=== PATIENT | female | born 1965 | race Caucasian/White ===

== ENCOUNTER 2016-05-11 18:42 | Inpatient (IN) | payer BC ==
[2016-05-11] MEDS ORDERED: Ondansetron INJ* 2 MG/ML VIAL IV ONE (18:56)
[2016-05-11] MEDS ORDERED: fentaNYL* 50 MCG/ML 2 ML VIAL (100 MCG VIAL) IV SLOW PU ONE (19:42)
--- NOTE | 2016-05-11 19:42 | RAD ---
indication: Fall while ice skating COMPARISON: None A CT scan of the brain and c-spine was performed without intravenous contrast enhancement. Contiguous axial sections were obtained from the lung apices through the vertex. BRAIN: At the right frontal lobe cortex there is a focal 7 mm hyperattenuating focus (image 11). External to this there is the appearance of a small amount of heterogeneous fluid not seen on the contralateral side. Along the lateral aspect of the left occiput there is a lenticular shaped hyperattenuating focus measuring 1.1 cm in length (image 14). This latter finding appears to correspond to a focus of subgaleal hematoma and induration overlying the left occipital bone. There is partial hyperdense effusion in the left mastoid air cells (image 6 of 32). No skull fracture line can be identified. The visualized paranasal sinuses are clear. C-SPINE: On the sagittal view images there is nonspecific straightening of the normal cervical lordosis. The vertebral bodies and facet joints are appropriately aligned. There is no widening of the atlantodental interval. Degenerative changes include loss of intervertebral disc height most severely affecting C5/C6. There is no hyperdense material in the cervical canal to indicate hemorrhage. The visualized musculature and soft tissues are normal. There is no gross lymphadenopathy visualized. The visualized portion of the lung apices are clear. IMPRESSION: 1. CT findings are compatible with an epidural versus subdural bleed overlying the left occipital lobe with a contrecoup contusion at the right frontal lobe as well as potential extra-axial hemorrhage external to the right frontal lobe. In addition there is hyperdense fluid in the dependent left mastoid air cells which can be a secondary finding of a temporal bone fracture, however no fracture line is identified on this CT examination. 2. Degenerative changes of the cervical spine with nonspecific straightening of the normal cervical lordosis without identification of acute fracture or traumatic dislocation. Findings were discussed with Dr. Wilson over the telephone at 1930 hours on May 11, 2016.
[2016-05-11] MEDS ORDERED: levETIRAcetam IV* 500 MG in NS 0.9% 100 ML* 100 ML IVPB ONE (19:43)
[2016-05-11] MEDS ORDERED: Piperac/Tazob 3.375 gm in NS* 3.375 GM/100 ML BAG IVPB ONE (19:43)
[2016-05-11 20:12] LABS: Hematocrit 37 % (35-47); Mean Corpuscular HGB Conc 33 g/dl (31-36); Mean Corpuscular Hemoglobin 30 pg (27-31); Mean Corpuscular Volume 90 fL (80-97); Mean Platelet Volume 8 um3 (7.4-10.4); Red Blood Count 4.08 10^6/ul (4.0-5.4); Red Cell Distribution Width 13 % (10.5-15); White Blood Count 19.3 10^3/ul (3.5-10.8)
[2016-05-11 20:27] LABS: ALT 11 U/L (7-52); AST 14 U/L (13-39); Albumin 3.7 g/dL (3.2-5.2); Alkaline Phosphatase 44 U/L (34-104); Anion Gap 4 mmol/L (2-11); BUN/Creatinine Ratio 35.1 (8-20); Blood Urea Nitrogen 20 mg/dL (6-24); CO2 Carbon Dioxide 25 mmol/L (22-32); Calcium 7.9 mg/dL (8.6-10.3); Chloride 107 mmol/L (101-111); EGFR African American 144.4 (>60); EGFR Non-African American 112.3 (>60); Globulin 2.7 g/dL (2-4); Glucose 98 mg/dL (70-100); Potassium 3.6 mmol/L (3.5-5.0); Sodium 136 mmol/L (133-145); Total Protein 6.4 g/dL (6.4-8.9)
--- NOTE | 2016-05-11 20:51 | ED ---
Head Injury - HPI Summary HPI Summary: Patient is a 51 year-old female coming to [facility] presenting with a head injury after she slipped and fell on the ice while skating this evening. She fell backwards onto the left occiput. The fall was unwitnessed by her , who is here in the room with her, but he was notified immediately and he skated over from the other side of the rink to see her. He reports positive LOC but states that she was already conscious when he arrived, so he estimates a loss of consciousness less than one minute. She does not remember hitting the ice. In the ED, she reports nausea, posterior headache, and left ear pain. She denies any numbness, tingling, blurred vision, or neck pain. She has no significant PMHx. - History Of Current Complaint Chief Complaint: EDHeadInjury Stated Complaint: FALL/HEAD INJURY Time Seen by Provider: 05/11/16 18:47 Hx Obtained From: Patient Mechanism Of Injury: Blunt Trauma, Fall From A Standing Position Onset/Duration: Started Hours Ago Onset of Pain: Immediate Severity Currently: Severe Pain Intensity: 9 Pain Scale Used: 0-10 Numeric Location of Head Injury: Diffuse Character: Sharp Associated Signs And Symptoms: LOC (Time In Secs./Mins/Hrs) - Risk Factors SDH Risk Factor: Negative - Allergies/Home Medications Allergies/Adverse Reactions: Allergies Allergy/AdvReac Type Severity Reaction Status Date / Time No Known Allergies Allergy Verified 05/11/16 19:25 PMH/Surg Hx/FS Hx/Imm Hx Endocrine/Hematology History: Denies: Hx Diabetes Cardiovascular History: Denies: Hx Congestive Heart Failure, Hx Hypertension - Cancer History Hx Chemotherapy: No Hx Radiation Therapy: No - Surgical History Surgery Procedure, Year, and Place: tubal ligation - Immunization History Date of Tetanus Vaccine: unk Date of Influenza Vaccine: unk Infectious Disease History: No Infectious Disease History: Denies: Traveled Outside the [place] in Last 30 Days - Social History Alcohol Use: Daily Alcohol Amount: 1 DRINK Substance Use Type: Reports: None Smoking Status (MU): Never Smoked Tobacco Review of Systems Constitutional: Negative Eyes: Negative ENT: Other - Left EAC bleeding no CSF leak Cardiovascular: Negative Respiratory: Negative Gastrointestinal: Negative Positive: Headache All Other Systems Reviewed And Are Negative: No Physical Exam - Summary Physical Exam Summary: General: Comfortable, pleasant, alert. HEENT: Moist mucosa. No facial abrasion or bony tenderness. Bleeding from the left pinna. Left TM slightly visualized with some blood within the left ear canal. Parietal occipital region is tender, with no obvious large hematoma or stepoff. Negative Winslow's Sign, negative raccoon's sign, negative CSF rhinorrhea. Neck: Soft, supple, no adenopathy, no edema. No c-spine tenderness. Full ROM of c-spine. No pain with active ROM. Heart: S1, S2, RRR. Negative murmur/rub/gallops Lungs: Clear, breathing comfortably, negative wheezes/rales. Abd: Soft, flat, nontender. Extremities: No edema, no calf tenderness. Strength intact of the upper extremities. Lower extremities also full ROM with no signs of injury or trauma. Neuro: A&Ox3. CN III-XII intact. Psych: Logical, coherent. Vital Signs On Initial Exam: Temp Pulse Resp BP Pulse Ox 99.3 F 93 14 126/60 98 05/11/16 19:20 05/11/16 19:20 05/11/16 19:20 05/11/16 19:20 05/11/16 19:20 Vital Signs Reviewed: Yes Appearance: Positive: Well-Appearing Skin: Positive: Warm Eyes: Positive: Normal ENT: Positive: Other - left EAC bleeding no CSF leak Neck: Positive: Nontender Respiratory/Lung Sounds: Positive: Clear to Auscultation Cardiovascular: Positive: Normal Abdomen Description: Positive: Nontender Neurological: Positive: Normal, Sensory/Motor Intact, Alert, Oriented to Person Place, Time, CN Intact II-III, Reflexes Intact, Facial Symmetry, Speech Normal - [place] Coma Scale Best Eye Response: 4 - Spontaneous Best Motor Response: 6 - Obeys Commands Best Verbal Response: 5 - Oriented Coma Scale Total: 15 Diagnostics - Vital Signs Vital Signs Temp Pulse Resp BP Pulse Ox 05/11/16 19:20 99.3 F 93 14 126/60 98 - Laboratory Lab Results: Lab Results 05/11/16 05/11/16 05/11/16 Range/Units 20:05 20:05 20:05 WBC 19.3 H (3.5-10.8) 10^3/ul RBC 4.08 (4.0-5.4) 10^6/ul Hgb 12.0 (12.0-16.0) g/dl Hct 37 (35-47) % MCV 90 (80-97) fL MCH 30 (27-31) pg MCHC 33 (31-36) g/dl RDW 13 (10.5-15) % Plt Count 364 (150-450) 10^3/ul MPV 8 (7.4-10.4) um3 Neut % (Auto) 86.5 H (38-83) % Lymph % (Auto) 8.3 L (25-47) % [place] % (Auto) 4.2 (1-9) % Eos % (Auto) 0.6 (0-6) % Baso % (Auto) 0.4 (0-2) % Absolute Neuts (auto) 16.7 H (1.5-7.7) 10^3/ul Absolute Lymphs (auto) 1.6 (1.0-4.8) 10^3/ul Absolute Monos (auto) 0.8 (0-0.8) 10^3/ul Absolute Eos (auto) 0.1 (0-0.6) 10^3/ul Absolute Basos (auto) 0.1 (0-0.2) 10^3/ul Absolute Nucleated RBC 0 10^3/ul Nucleated RBC % 0 INR (Anticoag Therapy) 0.94 (0.89-1.11) Sodium 136 (133-145) mmol/L Potassium 3.6 (3.5-5.0) mmol/L Chloride 107 (101-111) mmol/L Carbon Dioxide 25 (22-32) mmol/L Anion Gap 4 (2-11) mmol/L BUN 20 (6-24) mg/dL Creatinine 0.57 (0.51-0.95) mg/dL Est GFR ( Amer) 144.4 (>60) Est GFR (Non-Af Amer) 112.3 (>60) BUN/Creatinine Ratio 35.1 H (8-20) Glucose 98 (70-100) mg/dL Calcium 7.9 L (8.6-10.3) mg/dL Total Bilirubin 0.30 (0.2-1.0) mg/dL AST 14 (13-39) U/L ALT 11 (7-52) U/L Alkaline Phosphatase 44 (34-104) U/L Total Protein 6.4 (6.4-8.9) g/dL Albumin 3.7 (3.2-5.2) g/dL Globulin 2.7 (2-4) g/dL Albumin/Globulin Ratio 1.4 (1-3) Result Diagrams: 05/12/16 05:47 05/13/16 05:27 Lab Statement: Any lab studies that have been ordered have been reviewed, and results considered in the medical decision making process. - CT brain CT Interpretation Completed By: Radiologist - CT findings are compatible with an epidural versus subdural bleed overlying the left occipital lobe with a contrecoup contusion at the right frontal lobe as well as potential extra-axial hemorrhage external to the right frontal lobe. In addition there is hyperdense fluid in the dependent left mastoid air cells which can be a secondary finding of a temporal bone fracture, however no fracture line is identified on this CT examination. c-spine CT Interpretation Completed By: Radiologist - Degenerative changes of the cervical spine with nonspecific straightening of the normal cervical lordosis without identification of acute fracture or traumatic dislocation. - Additional Comments Diagnostic Additional Comments: Ct head showed small right frontal SAH and SDH, air in left mastoid area from skull base fracture, no mass effect or midline shift Re-Evaluation - Re-Evaluation First Eval Re-Evaluation Time: 19:50 Comment: Discussed radiology findings and specialist consultation with the patient. No evidence of CSF leak. Head Injury Course/Dx Assessment/Plan: ENT consult. Repeat CT head tomorrow,. Control SBP less than 140 mmhg. Neurocheck q2h for 12 h then q4h. keppra 750 mmhg bid po for 7 days. advance care tomorrow after stable CT - Diagnoses Differential Diagnosis/HQI/PQRI: Cerebral Contusion, Concussion With LOC, Contusion, Hematoma - small right frontal SAH and SDH, Skull Fracture - left mastoid skull base fracture Provider Diagnoses: SAH (subarachnoid hemorrhage), Basilar skull fracture, Subdural hematoma During the Visit The Following Alert/Code Occurred: Trauma - Physician Notifications Instructed by Provider To: Admit As Inpatient - ENT consult Repeat CT head tomorrow, Control SBP less than 140 mmhg Neurocheck q2h for 12 h then q4h keppra 750 mmhg bid po for 7 days advance care tomorrow after stable CT Discharge - Discharge Plan Condition: Stable Disposition: ADMITTED TO [facility]
--- NOTE | 2016-05-11 21:49 | ED ---
Sly Sanon Billy, scribed for Steve Meredith MD on 05/11/16 at 1929 . Head Injury - HPI Summary HPI Summary: Patient is a 51 year-old female coming to [facility] presenting with a head injury after she slipped and fell on the ice while skating this evening. She fell backwards onto the left occiput. The fall was unwitnessed by her , who is here in the room with her, but he was notified immediately and he skated over from the other side of the rink to see her. He reports positive LOC but states that she was already conscious when he arrived, so he estimates a loss of consciousness less than one minute. She does not remember hitting the ice. In the ED, she reports nausea, posterior headache, and left ear pain. She denies any numbness, tingling, blurred vision, or neck pain. She has no significant PMHx. - History Of Current Complaint Chief Complaint: EDHeadInjury Stated Complaint: FALL/HEAD INJURY Time Seen by Provider: 05/11/16 18:47 Hx Obtained From: Patient Mechanism Of Injury: Fall From A Standing Position Onset/Duration: Started Hours Ago, Still Present Onset of Pain: Immediate Severity Currently: Moderate Severity Initially: Moderate Location of Head Injury: Parietal, Occipital Associated Signs And Symptoms: LOC (Time In Secs./Mins/Hrs) - <1 minute, Nausea , Headache - Allergies/Home Medications Allergies/Adverse Reactions: Allergies Allergy/AdvReac Type Severity Reaction Status Date / Time No Known Allergies Allergy Verified 05/11/16 19:25 PMH/Surg Hx/FS Hx/Imm Hx Endocrine/Hematology History: Denies: Hx Diabetes Cardiovascular History: Denies: Hx Congestive Heart Failure, Hx Hypertension - Cancer History Hx Chemotherapy: No Hx Radiation Therapy: No - Surgical History Surgery Procedure, Year, and Place: tubal ligation Infectious Disease History: Denies: Traveled Outside the [place] in Last 30 Days - Family History Known Family History: Negative: Cardiac Disease, Hypertension, Diabetes - Social History Alcohol Use: Daily Alcohol Amount: 1 DRINK Substance Use Type: Reports: None Smoking Status (MU): Never Smoked Tobacco Review of Systems Negative: Blurred Vision Positive: Nausea Positive: Other - head lac Positive: Headache. Negative: Weakness, Paresthesia, Numbness All Other Systems Reviewed And Are Negative: Yes Physical Exam - Summary Physical Exam Summary: General: Comfortable, pleasant, alert. HEENT: Moist mucosa. No facial abrasion or bony tenderness. Bleeding from the left pinna. Left TM slightly visualized with some blood within the left ear canal. Parietal occipital region is tender, with no obvious large hematoma or stepoff. Negative Winslow's Sign, negative raccoon's sign, negative CSF rhinorrhea. Neck: Soft, supple, no adenopathy, no edema. No c-spine tenderness. Full ROM of c-spine. No pain with active ROM. Heart: S1, S2, RRR. Negative murmur/rub/gallops Lungs: Clear, breathing comfortably, negative wheezes/rales. Abd: Soft, flat, nontender. Extremities: No edema, no calf tenderness. Strength intact of the upper extremities. Lower extremities also full ROM with no signs of injury or trauma. Neuro: A&Ox3. CN III-XII intact. Psych: Logical, coherent. Triage Information Reviewed: Yes Vital Signs On Initial Exam: Temp Pulse Resp BP Pulse Ox 99.3 F 93 14 126/60 98 05/11/16 19:20 05/11/16 19:20 05/11/16 19:20 05/11/16 19:20 05/11/16 19:20 Vital Signs Reviewed: Yes Diagnostics - Vital Signs Vital Signs Temp Pulse Resp BP Pulse Ox 05/11/16 20:47 16 05/11/16 19:20 99.3 F 93 14 126/60 98 - Laboratory Lab Results: Lab Results 05/11/16 05/11/16 05/11/16 Range/Units 20:05 20:05 20:05 WBC 19.3 H (3.5-10.8) 10^3/ul RBC 4.08 (4.0-5.4) 10^6/ul Hgb 12.0 (12.0-16.0) g/dl Hct 37 (35-47) % MCV 90 (80-97) fL MCH 30 (27-31) pg MCHC 33 (31-36) g/dl RDW 13 (10.5-15) % Plt Count 364 (150-450) 10^3/ul MPV 8 (7.4-10.4) um3 Neut % (Auto) 86.5 H (38-83) % Lymph % (Auto) 8.3 L (25-47) % [place] % (Auto) 4.2 (1-9) % Eos % (Auto) 0.6 (0-6) % Baso % (Auto) 0.4 (0-2) % Absolute Neuts (auto) 16.7 H (1.5-7.7) 10^3/ul Absolute Lymphs (auto) 1.6 (1.0-4.8) 10^3/ul Absolute Monos (auto) 0.8 (0-0.8) 10^3/ul Absolute Eos (auto) 0.1 (0-0.6) 10^3/ul Absolute Basos (auto) 0.1 (0-0.2) 10^3/ul Absolute Nucleated RBC 0 10^3/ul Nucleated RBC % 0 INR (Anticoag Therapy) 0.94 (0.89-1.11) Sodium 136 (133-145) mmol/L Potassium 3.6 (3.5-5.0) mmol/L Chloride 107 (101-111) mmol/L Carbon Dioxide 25 (22-32) mmol/L Anion Gap 4 (2-11) mmol/L BUN 20 (6-24) mg/dL Creatinine 0.57 (0.51-0.95) mg/dL Est GFR ( Amer) 144.4 (>60) Est GFR (Non-Af Amer) 112.3 (>60) BUN/Creatinine Ratio 35.1 H (8-20) Glucose 98 (70-100) mg/dL Calcium 7.9 L (8.6-10.3) mg/dL Total Bilirubin 0.30 (0.2-1.0) mg/dL AST 14 (13-39) U/L ALT 11 (7-52) U/L Alkaline Phosphatase 44 (34-104) U/L Total Protein 6.4 (6.4-8.9) g/dL Albumin 3.7 (3.2-5.2) g/dL Globulin 2.7 (2-4) g/dL Albumin/Globulin Ratio 1.4 (1-3) Result Diagrams: 05/11/16 20:05 05/11/16 20:05 Lab Statement: Any lab studies that have been ordered have been reviewed, and results considered in the medical decision making process. - CT brain CT Interpretation Completed By: Radiologist - CT findings are compatible with an epidural versus subdural bleed overlying the left occipital lobe with a contrecoup contusion at the right frontal lobe as well as potential extra-axial hemorrhage external to the right frontal lobe. In addition there is hyperdense fluid in the dependent left mastoid air cells which can be a secondary finding of a temporal bone fracture, however no fracture line is identified on this CT examination. c-spine CT Interpretation Completed By: Radiologist - Degenerative changes of the cervical spine with nonspecific straightening of the normal cervical lordosis without identification of acute fracture or traumatic dislocation. Re-Evaluation - Re-Evaluation First Eval Re-Evaluation Time: 19:50 Comment: Discussed radiology findings and specialist consultation with the patient. No evidence of CSF leak. Head Injury Course/Dx Assessment/Plan: Unfortunately, she had a significant fall on the ice and has several small intracranial bleeds intracranial, without neurologic deficits nor evidence of brain edema. She also has what is likely a left temporal bone fracture. At this point, her biggest complaint is pain and discomfort. I have spoken in detail with Dr. Cade and Dr. Cardona. Dr. Cade does not believe the patient needs to be transferred, and he simply would like prophylactic anti-seizure medicines and repeat imaging. Dr. Cade is in the ER as we speak, consulting, and Dr. Thurston accepts the patient for admission. Dr. Cardona will consult in the morning. At the moment, after re-evaluation, there is no evidence of CSF leak as there is no clear fluid coming from the ears or nose. - Diagnoses Differential Diagnosis/HQI/PQRI: Cerebral Contusion, Cervical Sprain, Concussion With LOC, Concussion Without LOC, Hematoma, Intracranial Bleed, Laceration, Skull Fracture, Zygomatic Fracture Provider Diagnoses: SAH (subarachnoid hemorrhage), Basilar skull fracture, Subdural hematoma - Physician Notifications Discussed Care Of Patient With: Dr. Love (radiologist) @ 1928: CT findings discussed. Dr. Cade (neurosurgeon) @ 1933: agrees to see the patient in the ED. Believes the patient will be safe for admission, observation overnight, ENT consult for CSF leak, and repeat CT imaging in the morning. At this rate, he sees no further intervention as far as he can tell, but he recommends Kepra. Dr. Cardona (ENT) @ 1943: will consult in the morning. Recommends antibiotic coverage for what may be an open fracture. As long as there is no clear fluid leaking currently, there is no further intervention tonight. Dr. Thurston ( hospitalist) @ 1959: accepts admission. - Critical Care Time Critical Care Time: 75-104 min - basilar skull fracture, epidural hemorrhage, contracoupe injuries, suggestion of some subarachnoid hemorrhage Discharge - Discharge Plan Condition: Stable Disposition: ADMITTED TO [facility] The documentation as recorded by the Sly pagan Billy accurately reflects the service I personally performed and the decisions made by me, Steve Meredith MD.
[2016-05-11] MEDS: NS 0.9% 1000 ML* 1,000 ML IV SCH (23:02)
[2016-05-11] MEDS: Ondansetron INJ* 2 MG/ML VIAL IV PRN (23:02)
[2016-05-11] MEDS: fentaNYL* 50 MCG/ML 2 ML VIAL (100 MCG VIAL) IV SLOW PU PRN (23:03)
[2016-05-12] MEDS: fentaNYL* 50 MCG/ML 2 ML VIAL (100 MCG VIAL) IV SLOW PU PRN ×9 (01:34→22:25)
[2016-05-12] MEDS ORDERED: Ampicillin IV* 2 GM in NS 0.9% 100 ML* 100 ML IVPB SCH (03:00)
[2016-05-12] MEDS: Ondansetron INJ* 2 MG/ML VIAL IV PRN ×5 (03:53→22:26)
[2016-05-12] MEDS: Ampicillin IV* 2 GM in NS 0.9% 100 ML* 100 ML IVPB SCH ×4 (04:05→22:00)
[2016-05-12 05:54] LABS: Hematocrit 35 % (35-47); Hemoglobin 11.5 g/dl (12.0-16.0); Mean Corpuscular HGB Conc 33 g/dl (31-36); Mean Corpuscular Hemoglobin 30 pg (27-31); Mean Corpuscular Volume 89 fL (80-97); Mean Platelet Volume 8 um3 (7.4-10.4); Red Blood Count 3.86 10^6/ul (4.0-5.4); Red Cell Distribution Width 13 % (10.5-15); White Blood Count 9.4 10^3/ul (3.5-10.8)
[2016-05-12] MEDS: NS 0.9% 1000 ML* 1,000 ML IV SCH ×2 (06:35→15:15)
--- NOTE | 2016-05-12 06:49 | HP ---
HISTORY AND PHYSICAL: DATE OF ADMISSION: 05/11/16 TIME OF EVALUATION: 2100 PRIMARY CARE PHYSICIAN: Dr. Oumar Weldon. CHIEF COMPLAINT: Fall and head injury. HISTORY OF PRESENT ILLNESS: This is a 51-year-old female with an unremarkable past medical history when this evening around 6:30 she was ice skating with her family. She stopped to take a picture and she turned to look behind her and she fell backward a feet though from underneath her and she landed on the back of her head. She did lose consciousness briefly when she came with her, she was confused and with significant amount of head pain and noticed bleeding coming from her left ear. She was seen in the emergency room. She was brought to the emergency room, had a head CT and a cervical spine CT. She was found to have epidural or subdural bleed with a possible temporal bone fracture. Dr. Khan from Neurosurgery evaluated the patient in the emergency room, recommended observation overnight and Dr. Cardona from ENT was also notified due to the bleeding from the ear canal and he also recommended observation overnight with the antibiotics and he would see her in the morning. On my encounter, the patient has a lot of posterior head pain, nausea, no vomiting. She does have some confusion. She denies any numbness or tingling. She denies any blurry vision. She is alert and oriented x2. Otherwise, remaining review of systems is negative. In the emergency room, the patient was given fentanyl 15 mcg, Keppra 500 mg, Zofran 4 mg, and Zosyn and was referred to the hospitalist service for further evaluation. PAST MEDICAL HISTORY: Unremarkable. MEDICATIONS: None. ALLERGIES: No known drug allergies. FAMILY HISTORY: Reviewed and noncontributory. SOCIAL HISTORY: She lives at home with her and her daughter Yesica. She drinks 1 glass of wine per day. No tobacco or illicit drug use history. 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 Her healthcare proxy is her , Rusty. CODE STATUS: Full code. REVIEW OF SYSTEMS: As mentioned in the HPI. PHYSICAL EXAMINATION GENERAL: In no acute distress, resting with her sister and her daughter at the bedside. VITAL SIGNS: Temp 99.3, pulse rate 93, respiratory rate 14, oxygen saturation 98 % on room air, blood pressure 126/60. HEENT: Ear: Her left ear, she does have dark blood, there is a slow ooze from the canal. No clear fluid identified. No posterior auricular hematoma noted. The right ear is normal. Pupils are equal and reactive, anicteric. Head: Normocephalic. Oropharynx: Mucous membranes moist. NECK: Supple. No adenopathy. RESPIRATORY: Clear to auscultation. No wheezes, rhonchi or rales. CARDIAC: Regular rate and rhythm. No murmurs, rubs or gallops. ABDOMEN: Soft, nontender, nondistended. EXTREMITIES: No clubbing, cyanosis or edema. +1 DPs. NEUROLOGIC: She is alert and oriented x2, oriented to self and place. No focal neurologic deficits on exam. DIAGNOSTIC STUDIES/LABORATORY DATA: White count 19.3, hemoglobin 12, hematocrit 37, platelets 364, INR 0.94. Sodium 136, potassium 3.6, chloride 107 , bicarb 25, BUN 20, creatinine 0.57, glucose 98. Radiographic data: Head CT shows CT findings that are compatible with an epidural versus subdural bleed overlying the left occipital lobe with a contrecoup contusion at the right frontal lobe as well as potential external to the right frontal lobe. In addition, there is hyperdense fluid in the dependent left mastoid air cells, which can be secondary finding of a temporal bone fracture. However, no fracture line is identified on this CAT scan. Degenerative changes of the cervical spine with nonspecific straightening of the normal cervical lordosis without indication of acute fracture or traumatic dislocation. ASSESSMENT AND PLAN: This is a 51-year-old female with an unremarkable past medical history who presents to the emergency room after falling on the ice and hitting her head with loss of consciousness and found to have an intracranial bleed with a potential temporal bone fracture. 1. Intracranial hemorrhage secondary to a fall. Assessment: The patient neurologically stable. She was seen by neurosurgeon, Dr. Khan who recommended observation overnight with neuro checks, a repeat CAT scan in the morning, he recommended Keppra 750 mg b.i.d. for [address] Yap from ENT recommended antibiotic coverage and he was going to see her in the morning. Right now, there are no signs of clear fluid. We will observe for this and contact Neurosurgery if this is seen. Plan: As mentioned, admit to the ICU, continue her on the Keppra. We will switch her to ampicillin. Goal is to keep her blood pressure less than 140 systolic, neuro checks q.2 hours and pain control, antiemetics, and repeat CAT scan in the morning. We will repeat a CBC as well in the morning and follow up with Neurosurgery and ENT. 2. FEN. We will allow for clear sips, otherwise keep her NPO. 3. DVT prophylaxis. She is low risk. We will place her on SCDs. 4. Code status. Full code. PATIENT TIME: Greater than 45 minutes were spent doing history and physical, more than half the time spent in direct patient contact. CC: Dr. Oumar Weldon.* [id number]/CPS #: [id number]
--- NOTE | 2016-05-12 08:23 | PN ---
Subjective Date of Service: 05/12/16 Interval History: C/O headache, slept poorly. No new c/o. No visual changes, no limb weakness. Objective Active Medications: Fentanyl Citrate (Fentanyl*) 25 mcg IV SLOW PU Q2HR PRN PRN Reason: PAIN Last Admin: 05/12/16 07:34 Dose: 25 mcg Sodium Chloride (Ns 0.9% 1000 Ml*) 1,000 mls @ 125 mls/hr IV PER RATE [place] Last Admin: 05/12/16 06:35 Dose: 125 mls/hr Levetiracetam 750 mg/ Sodium (Chloride) 107.5 mls @ 460 mls/hr IVPB Q12H [facility] Ampicillin Sodium 2 gm/ Sodium (Chloride) 100 mls @ 200 mls/hr IVPB 0400,1000, 1600,2200 [facility] Last Admin: 05/12/16 04:05 Dose: 200 mls/hr Ondansetron HCl (Zofran Inj*) 4 mg IV Q4H PRN PRN Reason: NAUSEA/VOMITING Last Admin: 05/12/16 07:53 Dose: 4 mg Vital Signs 05/11/16 05/11/16 05/11/16 22:00 22:16 22:30 Temperature 98.3 F Pulse Rate 102 108 97 Respiratory 24 14 20 Rate Blood Pressure 141/74 (mmHg) O2 Sat by Pulse 91 98 98 Oximetry 05/11/16 05/11/16 05/11/16 22:45 23:00 23:03 Temperature Pulse Rate 90 81 Respiratory 20 21 21 Rate Blood Pressure 122/68 (mmHg) O2 Sat by Pulse 98 97 Oximetry 05/11/16 05/11/16 05/11/16 23:15 23:30 23:45 Temperature Pulse Rate 81 84 83 Respiratory 17 17 17 Rate Blood Pressure 115/74 117/69 117/64 (mmHg) O2 Sat by Pulse 94 96 96 Oximetry 05/12/16 05/12/16 05/12/16 00:00 00:01 00:15 Temperature 99.1 F Pulse Rate 94 92 89 Respiratory 19 16 20 Rate Blood Pressure 129/70 127/74 (mmHg) O2 Sat by Pulse 99 99 99 Oximetry 05/12/16 05/12/16 05/12/16 00:19 00:30 00:45 Temperature Pulse Rate Respiratory 19 17 17 Rate Blood Pressure 120/69 116/73 (mmHg) O2 Sat by Pulse 99 97 98 Oximetry 05/12/16 05/12/16 05/12/16 00:52 01:00 01:15 Temperature Pulse Rate Respiratory 17 17 18 Rate Blood Pressure 123/69 122/67 (mmHg) O2 Sat by Pulse 97 98 Oximetry 05/12/16 05/12/16 05/12/16 01:30 01:34 01:45 Temperature Pulse Rate Respiratory 21 20 17 Rate Blood Pressure 130/77 138/76 (mmHg) O2 Sat by Pulse 98 97 Oximetry 05/12/16 05/12/16 05/12/16 02:00 02:15 02:30 Temperature Pulse Rate 91 Respiratory 18 19 Rate Blood Pressure 128/69 139/73 128/68 (mmHg) O2 Sat by Pulse 98 98 Oximetry 05/12/16 05/12/16 05/12/16 02:45 03:00 03:15 Temperature Pulse Rate Respiratory 16 15 Rate Blood Pressure 113/70 123/65 123/62 (mmHg) O2 Sat by Pulse 98 97 Oximetry 05/12/16 05/12/16 05/12/16 03:30 03:45 03:54 Temperature Pulse Rate Respiratory 17 16 18 Rate Blood Pressure 112/65 122/70 (mmHg) O2 Sat by Pulse 97 98 Oximetry 05/12/16 05/12/16 05/12/16 04:00 04:15 04:18 Temperature 98.8 F Pulse Rate 81 Respiratory 15 16 Rate Blood Pressure 104/67 116/64 (mmHg) O2 Sat by Pulse 96 96 Oximetry 05/12/16 05/12/16 05/12/16 05:00 06:00 06:01 Temperature Pulse Rate Respiratory 20 17 16 Rate Blood Pressure 132/74 126/68 (mmHg) O2 Sat by Pulse 98 99 Oximetry 05/12/16 05/12/16 07:00 07:34 Temperature Pulse Rate 73 Respiratory 17 19 Rate Blood Pressure 122/71 (mmHg) O2 Sat by Pulse 99 Oximetry Oxygen Devices in Use Now: None Appearance: Alert, supine in ICU bed, washcloth on forehead. Appears discouraged. Lying very still. Eyes: No Scleral Icterus Ears/Nose/Mouth/Throat: Clear Oropharnyx, Mucous Membranes Moist Neck: NL Appearance and Movements; NL JVP, No Thyroid Enlargement, Masses Respiratory: Symmetrical Chest Expansion and Respiratory Effort, Clear to Auscultation, Clear to Percussion Cardiovascular: NL Sounds; No Murmurs; No JVD, RRR, No Edema, - Extremities: No Edema, No Clubbing, Cyanosis, - Skin: No Rash or Ulcers, No Nodules or Sclerosis, - Neurological: Alert and Oriented x 3, NL Sensation, - - Hand assembler convertible top, and foot dorsiflexion symmetric. Result Diagrams: 05/12/16 05:47 05/11/16 20:05 Additional Lab and Data: Lab Results 05/11/16 05/11/16 05/11/16 Range/Units 20:05 20:05 20:05 WBC 19.3 H (3.5-10.8) 10^3/ul RBC 4.08 (4.0-5.4) 10^6/ul Hgb 12.0 (12.0-16.0) g/dl Hct 37 (35-47) % MCV 90 (80-97) fL MCH 30 (27-31) pg MCHC 33 (31-36) g/dl RDW 13 (10.5-15) % Plt Count 364 (150-450) 10^3/ul MPV 8 (7.4-10.4) um3 Neut % (Auto) 86.5 H (38-83) % Lymph % (Auto) 8.3 L (25-47) % [place] % (Auto) 4.2 (1-9) % Eos % (Auto) 0.6 (0-6) % Baso % (Auto) 0.4 (0-2) % Absolute Neuts (auto) 16.7 H (1.5-7.7) 10^3/ul Absolute Lymphs (auto) 1.6 (1.0-4.8) 10^3/ul Absolute Monos (auto) 0.8 (0-0.8) 10^3/ul Absolute Eos (auto) 0.1 (0-0.6) 10^3/ul Absolute Basos (auto) 0.1 (0-0.2) 10^3/ul Absolute Nucleated RBC 0 10^3/ul Nucleated RBC % 0 INR (Anticoag Therapy) 0.94 (0.89-1.11) Sodium 136 (133-145) mmol/L Potassium 3.6 (3.5-5.0) mmol/L Chloride 107 (101-111) mmol/L Carbon Dioxide 25 (22-32) mmol/L Anion Gap 4 (2-11) mmol/L BUN 20 (6-24) mg/dL Creatinine 0.57 (0.51-0.95) mg/dL Est GFR ( Amer) 144.4 (>60) Est GFR (Non-Af Amer) 112.3 (>60) BUN/Creatinine Ratio 35.1 H (8-20) Glucose 98 (70-100) mg/dL Calcium 7.9 L (8.6-10.3) mg/dL Total Bilirubin 0.30 (0.2-1.0) mg/dL AST 14 (13-39) U/L ALT 11 (7-52) U/L Alkaline Phosphatase 44 (34-104) U/L Total Protein 6.4 (6.4-8.9) g/dL Albumin 3.7 (3.2-5.2) g/dL Globulin 2.7 (2-4) g/dL Albumin/Globulin Ratio 1.4 (1-3) Microbiology and Other Data: Microbiology 05/11/16 23:57 Nasal Screen MRSA (PCR)(MAGGY) - Final Nasal Mrsa Negative Assess/Plan/Problems-Billing Assessment: - Patient Problems (1) ICH (intracerebral hemorrhage) Current Visit: Yes Status: Acute Code(s): I61.9 - NONTRAUMATIC INTRACEREBRAL HEMORRHAGE, UNSPECIFIED SNOMED Code(s): 128000106 Comment: Due to trauma, fell backwards on ice. Possible temporal bone fx. ENT to see 05/12/16. Repeat CT brain 05/12/16. Continue levetiracetam, IV ampicillin. SCD's in place.
[2016-05-12] MEDS: levETIRAcetam IV* 750 MG in NS 0.9% 100 ML* 100 ML IVPB SCH ×2 (09:20→21:23)
--- NOTE | 2016-05-12 09:20 | RAD ---
INDICATION: Head injury. COMPARISON: CT of the brain dated May 11, 2016 TECHNIQUE: Contiguous axial sections of the brain were obtained from the skull base to the vertex without contrast. FINDINGS: Similar to the most recent CT examination there is a 1.2 cm length lenticular density immediately external to the left occipital lobe without significant change from the previous CT examination. At the right frontal lobe the 7 mm density seen on the previous CT examination is less well-defined but there is more amorphous density (image 10 of 32). [place] to this is a mostly low density mixed attenuation area measuring up to 1.6 cm (image 8). Likely external to the brain or at the cortex there is a 4 mm hyperdense focus seen in the same vicinity. The remainder the brain is normal within the limitations of a noncontrast CT examination. There is no significant mass effect, midline shift or identification of acute herniation. There has been a small increase in the volume of the dependent dense left mastoid air cell effusion. At the left temporal bone (image 9 of 32) there are at least 3 lucent lines extending from the inner table to the outer table of the calvarium that are not well. On the contralateral side. These are separate from the lambdoidal sutures located more posteriorly. The visualized portion of the paranasal sinuses are clear. IMPRESSION: 1. No significant change of the left occipital epidural/subdural hematoma. 2. Increased hypodensity involving the cortex of the right frontal lobe with a small amount of adjacent extra-axial hemorrhage consistent with a "contrecoup" brain contusion. 3. There has been a slight increase in the volume of the hyperdense left mastoid air cell effusion which in this traumatic setting is most consistent with blood. 4. Lucent lines extending from the inner to outer table of the left temporal bone, incompletely matched on the contralateral right side, are either a nondisplaced temporal bone fracture or asymmetrically exaggerated squamosal suture lines.
--- NOTE | 2016-05-12 11:04 | PN ---
Progress Note - Progress Note Note: C/O headache, left hearing decrease, some N & V. No visual changes, no weakness , numbness and seizure . Objective Vital Signs Temp 96.4 F 05/12/16 08:00 Pulse 73 05/12/16 07:00 Resp 18 05/12/16 10:26 BP 122/71 05/12/16 07:00 Pulse Ox 99 05/12/16 07:00 Intake & Output 05/11/16 05/12/16 05/12/16 19:59 07:59 19:59 Intake Total 1016 Output Total 700 Balance 316 Weight 130 lb 143 lb 8.335 oz Intake: IV Fluids 1016 ABX - AMPICILLIN 110 NS (0.9%) 806 Output: Urine 700 Other: # Voids 1 Physical Exam: GEN: No apparent distress Mental Status: Awake and oriented x 3 Cranial Nerves: PERRL, face symmetric, tongue midline , left hearing decrease, Left EAC positive for blood no CSF Leak Motor Exam: Strength equal and strong bilaterally, no drift Sensory Exam: Sensation intact grossly to light touch, no extinction WBC 9.4 10^3/ul (3.5-10.8) 05/12/16 05:47 RBC 3.86 10^6/ul (4.0-5.4) L 05/12/16 05:47 Hgb 11.5 g/dl (12.0-16.0) L 05/12/16 05:47 Hct 35 % (35-47) 05/12/16 05:47 MCV 89 fL (80-97) 05/12/16 05:47 MCH 30 pg (27-31) 05/12/16 05:47 MCHC 33 g/dl (31-36) 05/12/16 05:47 RDW 13 % (10.5-15) 05/12/16 05:47 Plt Count 320 10^3/ul (150-450) 05/12/16 05:47 MPV 8 um3 (7.4-10.4) 05/12/16 05:47 Neut % (Auto) 80.8 % (38-83) 05/12/16 05:47 Lymph % (Auto) 12.9 % (25-47) L 05/12/16 05:47 [place] % (Auto) 6.0 % (1-9) 05/12/16 05:47 Eos % (Auto) 0 % (0-6) 05/12/16 05:47 Baso % (Auto) 0.3 % (0-2) 05/12/16 05:47 Absolute Neuts (auto) 7.5 10^3/ul (1.5-7.7) 05/12/16 05:47 Absolute Lymphs (auto) 1.2 10^3/ul (1.0-4.8) 05/12/16 05:47 Absolute Monos (auto) 0.6 10^3/ul (0-0.8) 05/12/16 05:47 Absolute Eos (auto) 0 10^3/ul (0-0.6) 05/12/16 05:47 Absolute Basos (auto) 0 10^3/ul (0-0.2) 05/12/16 05:47 Absolute Nucleated RBC 0 10^3/ul 05/12/16 05:47 Nucleated RBC % 0 05/12/16 05:47 INR (Anticoag Therapy) 0.94 (0.89-1.11) 05/11/16 20:05 Sodium 136 mmol/L (133-145) 05/11/16 20:05 Potassium 3.6 mmol/L (3.5-5.0) 05/11/16 20:05 Chloride 107 mmol/L (101-111) 05/11/16 20:05 Carbon Dioxide 25 mmol/L (22-32) 05/11/16 20:05 Anion Gap 4 mmol/L (2-11) 05/11/16 20:05 BUN 20 mg/dL (6-24) 05/11/16 20:05 Creatinine 0.57 mg/dL (0.51-0.95) 05/11/16 20:05 Est GFR ( Amer) 144.4 (>60) 05/11/16 20:05 Est GFR (Non-Af Amer) 112.3 (>60) 05/11/16 20:05 BUN/Creatinine Ratio 35.1 (8-20) H 05/11/16 20:05 Glucose 98 mg/dL (70-100) 05/11/16 20:05 Calcium 7.9 mg/dL (8.6-10.3) L 05/11/16 20:05 Total Bilirubin 0.30 mg/dL (0.2-1.0) 05/11/16 20:05 AST 14 U/L (13-39) 05/11/16 20:05 ALT 11 U/L (7-52) 05/11/16 20:05 Alkaline Phosphatase 44 U/L (34-104) 05/11/16 20:05 Total Protein 6.4 g/dL (6.4-8.9) 05/11/16 20:05 Albumin 3.7 g/dL (3.2-5.2) 05/11/16 20:05 Globulin 2.7 g/dL (2-4) 05/11/16 20:05 Albumin/Globulin Ratio 1.4 (1-3) 05/11/16 20:05 Beta HCG, Quant < 0.60 mIU/mL 05/11/16 20:05 CT Showed stable left occipital and right frontal small contusion and SDH, left temporal bone and mastoid area frature Assess/Plan/Problems-Billing Assessment: 51F, S/P Ski injury and fall, stable left occipital and right frontal small contusion and SDH, left temporal bone and mastoid area fracture, no need for surgical intervention. ENT followup Continue pain control Advance diet as tolerated Continue levetiracetam for 7 days only, IV ampicillin. SCD's in place. OK for sq Heparin 500o units BID Advance care, PT OT and OOB,
[2016-05-12] MEDS: CIPROFLOXACIN 0.3% SCH ×2 (12:41→22:27)
[2016-05-12] MEDS: D5W 1/2 NS KCl 20 Meq 1000 ML* 1,000 ML IV SCH (19:51)
[2016-05-13] MEDS: Acetaminophen ADULT LIQ* 650 MG/20.3 ML UDC PO PRN ×3 (01:09→16:14)
[2016-05-13] MEDS: D5W 1/2 NS KCl 20 Meq 1000 ML* 1,000 ML IV SCH ×2 (03:23→14:32)
[2016-05-13] MEDS: Ampicillin IV* 2 GM in NS 0.9% 100 ML* 100 ML IVPB SCH ×4 (03:25→21:41)
[2016-05-13] MEDS ORDERED: HYDROmorphone INJ* 1 MG/ML CARPUJECT SYRINGE IV ONE (03:30)
[2016-05-13] MEDS ORDERED: HYDROmorphone INJ* 1 MG/ML CARPUJECT SYRINGE ONE (04:10)
[2016-05-13] MEDS: Ondansetron INJ* 2 MG/ML VIAL IV PRN ×3 (04:21→20:31)
[2016-05-13 06:56] LABS: BUN/Creatinine Ratio 18.6 (8-20); Calcium 7.6 mg/dL (8.6-10.3); EGFR African American 199.9 (>60); EGFR Non-African American 155.4 (>60); Potassium 3.7 mmol/L (3.5-5.0)
--- NOTE | 2016-05-13 08:27 | PN ---
Subjective Date of Service: 05/13/16 Interval History: Still has nausea, no emesis last 12 hrs. Pain relief better with 1 mg IV hydromorphone than 50 mg IV fentanyl. Objective Active Medications: Acetaminophen (Tylenol Adult Liq*) 650 mg PO Q4H PRN PRN Reason: PAIN Last Admin: 05/13/16 01:09 Dose: 650 mg Ciprofloxacin HCl (Cipro 0.3% Opth*) 4 drop .SEE ORDER BID [facility] Last Admin: 05/12/16 22:27 Dose: 4 drop Hydromorphone HCl (Dilaudid Iv*) 1 mg IV SLOW PU Q4H PRN PRN Reason: PAIN Levetiracetam 750 mg/ Sodium (Chloride) 107.5 mls @ 460 mls/hr IVPB Q12H [facility] Last Admin: 05/12/16 21:23 Dose: 460 mls/hr Ampicillin Sodium 2 gm/ Sodium (Chloride) 100 mls @ 200 mls/hr IVPB 0400,1000, 1600,2200 [facility] Last Admin: 05/13/16 03:25 Dose: 200 mls/hr Potassium Chloride/Dextrose (D5w 1/2 Ns Kcl 20 Meq 1000 Ml*) 1,000 mls @ 125 mls/hr IV PER RATE [facility] Last Admin: 05/13/16 03:23 Dose: 125 mls/hr Ondansetron HCl (Zofran Inj*) 4 mg IV Q4H PRN PRN Reason: NAUSEA/VOMITING Last Admin: 05/13/16 04:21 Dose: 4 mg Vital Signs 05/12/16 05/12/16 05/12/16 09:00 10:00 10:26 Temperature Pulse Rate 71 86 Respiratory 21 17 18 Rate Blood Pressure 148/69 133/63 (mmHg) O2 Sat by Pulse 97 98 Oximetry 05/12/16 05/12/16 05/12/16 11:00 11:29 12:00 Temperature 98.6 F Pulse Rate 93 81 Respiratory 16 19 Rate Blood Pressure 144/85 146/78 (mmHg) O2 Sat by Pulse 99 98 Oximetry 05/12/16 05/12/16 05/12/16 12:56 13:00 14:00 Temperature Pulse Rate 83 78 Respiratory 17 20 20 Rate Blood Pressure 131/66 151/78 (mmHg) O2 Sat by Pulse 98 98 Oximetry 0105/12/16 05/12/16 14:58 15:00 16:00 Temperature 97.2 F Pulse Rate 63 74 Respiratory 12 8 20 Rate Blood Pressure 139/67 (mmHg) O2 Sat by Pulse 99 99 Oximetry 05/12/16 05/12/16 05/12/16 17:00 17:40 18:00 Temperature Pulse Rate 106 73 Respiratory 25 16 22 Rate Blood Pressure 137/72 (mmHg) O2 Sat by Pulse 96 97 Oximetry 05/12/16 05/12/16 05/12/16 18:09 19:47 20:47 Temperature Pulse Rate 71 Respiratory 19 16 16 Rate Blood Pressure (mmHg) O2 Sat by Pulse 97 Oximetry 05/12/16 05/12/16 05/12/16 21:00 22:25 23:25 Temperature Pulse Rate Respiratory 16 14 16 Rate Blood Pressure (mmHg) O2 Sat by Pulse Oximetry 05/12/16 05/13/16 05/13/16 23:41 01:26 04:00 Temperature 98.3 F 97.6 F Pulse Rate 83 69 Respiratory 20 20 20 Rate Blood Pressure 128/60 133/60 (mmHg) O2 Sat by Pulse 99 98 Oximetry 05/13/16 05/13/16 05/13/16 04:20 05:20 07:33 Temperature 97.6 F Pulse Rate 64 Respiratory 16 16 16 Rate Blood Pressure 133/62 (mmHg) O2 Sat by Pulse 95 Oximetry Oxygen Devices in Use Now: None Appearance: Alert, supine in bed. Washcloth on forehead. Appears discouraged. Eyes: No Scleral Icterus Neck: NL Appearance and Movements; NL JVP, No Thyroid Enlargement, Masses Respiratory: Symmetrical Chest Expansion and Respiratory Effort, Clear to Auscultation, Clear to Percussion Cardiovascular: NL Sounds; No Murmurs; No JVD, RRR, No Edema, - Extremities: No Edema, No Clubbing, Cyanosis, - Skin: No Rash or Ulcers, No Nodules or Sclerosis, - Neurological: Alert and Oriented x 3, NL Sensation - hand cold rolling coordinator strong BL, foot dorsiflexion and flexion OK BL Result Diagrams: 05/12/16 05:47 05/13/16 05:27 Additional Lab and Data: Lab Results 05/11/16 05/11/16 05/11/16 Range/Units 20:05 20:05 20:05 WBC 19.3 H (3.5-10.8) 10^3/ul RBC 4.08 (4.0-5.4) 10^6/ul Hgb 12.0 (12.0-16.0) g/dl Hct 37 (35-47) % MCV 90 (80-97) fL MCH 30 (27-31) pg MCHC 33 (31-36) g/dl RDW 13 (10.5-15) % Plt Count 364 (150-450) 10^3/ul MPV 8 (7.4-10.4) um3 Neut % (Auto) 86.5 H (38-83) % Lymph % (Auto) 8.3 L (25-47) % [place] % (Auto) 4.2 (1-9) % Eos % (Auto) 0.6 (0-6) % Baso % (Auto) 0.4 (0-2) % Absolute Neuts (auto) 16.7 H (1.5-7.7) 10^3/ul Absolute Lymphs (auto) 1.6 (1.0-4.8) 10^3/ul Absolute Monos (auto) 0.8 (0-0.8) 10^3/ul Absolute Eos (auto) 0.1 (0-0.6) 10^3/ul Absolute Basos (auto) 0.1 (0-0.2) 10^3/ul Absolute Nucleated RBC 0 10^3/ul Nucleated RBC % 0 INR (Anticoag Therapy) 0.94 (0.89-1.11) Sodium 136 (133-145) mmol/L Potassium 3.6 (3.5-5.0) mmol/L Chloride 107 (101-111) mmol/L Carbon Dioxide 25 (22-32) mmol/L Anion Gap 4 (2-11) mmol/L BUN 20 (6-24) mg/dL Creatinine 0.57 (0.51-0.95) mg/dL Est GFR ( Amer) 144.4 (>60) Est GFR (Non-Af Amer) 112.3 (>60) BUN/Creatinine Ratio 35.1 H (8-20) Glucose 98 (70-100) mg/dL Calcium 7.9 L (8.6-10.3) mg/dL Total Bilirubin 0.30 (0.2-1.0) mg/dL AST 14 (13-39) U/L ALT 11 (7-52) U/L Alkaline Phosphatase 44 (34-104) U/L Total Protein 6.4 (6.4-8.9) g/dL Albumin 3.7 (3.2-5.2) g/dL Globulin 2.7 (2-4) g/dL Albumin/Globulin Ratio 1.4 (1-3) Microbiology and Other Data: Microbiology 05/11/16 23:57 Nasal Screen MRSA (PCR)(MAGGY) - Final Nasal Mrsa Negative Assess/Plan/Problems-Billing Assessment: - Patient Problems (1) ICH (intracerebral hemorrhage) Current Visit: Yes Status: Acute Code(s): I61.9 - NONTRAUMATIC INTRACEREBRAL HEMORRHAGE, UNSPECIFIED SNOMED Code(s): 712187000 Comment: Due to trauma, fell backwards on ice. Probable temporal bone fx. Continue levetiracetam, IV ampicillin. SCD's in place. Pt encouraged to get OOB, ambulate if tolerated.
--- NOTE | 2016-05-13 09:29 | PN ---
Progress Note - Progress Note Note: - Progress Note Note: C/O still headache, left hearing decrease, some N & V. No visual changes, no weakness, numbness and seizure . Objective Vital Signs Temp 97.6 F 05/13/16 07:33 Pulse 64 05/13/16 07:33 Resp 16 05/13/16 07:33 BP 133/62 05/13/16 07:33 Pulse Ox 95 05/13/16 07:33 Intake & Output 05/12/16 05/13/16 05/13/16 19:59 07:59 19:59 Intake Total 1737 1286 0 Output Total 430 550 Balance 1307 736 0 Intake: IV Fluids 1707 986 ABX - AMPICILLIN 1176 D5W 1/2 NS 20 meq KCL 986 NS (0.9%) 531 IVPB 200 ABX - AMPICILLIN 200 Oral 30 100 0 Output: Urine 400 550 Emesis 30 Other: Estimated Void Medium # Bowel Movements 0 # Voids 1 1 Physical Exam: GEN: No apparent distress Mental Status: Awake and oriented x 3 Cranial Nerves: PERRL, face symmetric, tongue midline , left hearing decrease, Left EAC less blood no CSF Leak Motor Exam: Strength equal and strong bilaterally, no drift Sensory Exam: Sensation intact grossly to light touch, no extinction WBC 9.4 10^3/ul (3.5-10.8) 05/12/16 05:47 RBC 3.86 10^6/ul (4.0-5.4) L 05/12/16 05:47 Hgb 11.5 g/dl (12.0-16.0) L 05/12/16 05:47 Hct 35 % (35-47) 05/12/16 05:47 MCV 89 fL (80-97) 05/12/16 05:47 MCH 30 pg (27-31) 05/12/16 05:47 MCHC 33 g/dl (31-36) 05/12/16 05:47 RDW 13 % (10.5-15) 05/12/16 05:47 Plt Count 320 10^3/ul (150-450) 05/12/16 05:47 MPV 8 um3 (7.4-10.4) 05/12/16 05:47 Neut % (Auto) 80.8 % (38-83) 05/12/16 05:47 Lymph % (Auto) 12.9 % (25-47) L 05/12/16 05:47 [place] % (Auto) 6.0 % (1-9) 05/12/16 05:47 Eos % (Auto) 0 % (0-6) 05/12/16 05:47 Baso % (Auto) 0.3 % (0-2) 05/12/16 05:47 Absolute Neuts (auto) 7.5 10^3/ul (1.5-7.7) 05/12/16 05:47 Absolute Lymphs (auto) 1.2 10^3/ul (1.0-4.8) 05/12/16 05:47 Absolute Monos (auto) 0.6 10^3/ul (0-0.8) 05/12/16 05:47 Absolute Eos (auto) 0 10^3/ul (0-0.6) 05/12/16 05:47 Absolute Basos (auto) 0 10^3/ul (0-0.2) 05/12/16 05:47 Absolute Nucleated RBC 0 10^3/ul 05/12/16 05:47 Nucleated RBC % 0 05/12/16 05:47 INR (Anticoag Therapy) 0.94 (0.89-1.11) 05/11/16 20:05 Sodium 137 mmol/L (133-145) 05/13/16 05:27 Potassium 3.7 mmol/L (3.5-5.0) 05/13/16 05:27 Chloride 106 mmol/L (101-111) 05/13/16 05:27 Carbon Dioxide 25 mmol/L (22-32) 05/13/16 05:27 Anion Gap 6 mmol/L (2-11) 05/13/16 05:27 BUN 8 mg/dL (6-24) 05/13/16 05:27 Creatinine 0.43 mg/dL (0.51-0.95) L 05/13/16 05:27 Est GFR ( Amer) 199.9 (>60) 05/13/16 05:27 Est GFR (Non-Af Amer) 155.4 (>60) 05/13/16 05:27 BUN/Creatinine Ratio 18.6 (8-20) 05/13/16 05:27 Glucose 135 mg/dL (70-100) H 05/13/16 05:27 Calcium 7.6 mg/dL (8.6-10.3) L 05/13/16 05:27 Total Bilirubin 0.30 mg/dL (0.2-1.0) 05/11/16 20:05 AST 14 U/L (13-39) 05/11/16 20:05 ALT 11 U/L (7-52) 05/11/16 20:05 Alkaline Phosphatase 44 U/L (34-104) 05/11/16 20:05 Total Protein 6.4 g/dL (6.4-8.9) 05/11/16 20:05 Albumin 3.7 g/dL (3.2-5.2) 05/11/16 20:05 Globulin 2.7 g/dL (2-4) 05/11/16 20:05 Albumin/Globulin Ratio 1.4 (1-3) 05/11/16 20:05 Beta HCG, Quant < 0.60 mIU/mL 05/11/16 20:05 CT Showed stable left occipital and right frontal small contusion and SDH, left temporal bone and mastoid area frature Assess/Plan/Problems-Billing Assessment: 51F, S/P Ski injury and fall, stable left occipital and right frontal small contusion and SDH, left temporal bone and mastoid area fracture, no need for surgical intervention. Continue pain and nausea control Advance diet as tolerated Continue levetiracetam for 7 days only, SCD's in place. OK for sq Heparin 500o units BID Advance care, PT OT and OOB,
[2016-05-13] MEDS: CIPROFLOXACIN 0.3% SCH ×2 (09:30→21:50)
[2016-05-13] MEDS: levETIRAcetam IV* 750 MG in NS 0.9% 100 ML* 100 ML IVPB SCH ×2 (09:30→20:22)
[2016-05-13] MEDS: HYDROmorphone INJ* 1 MG/ML CARPUJECT SYRINGE IV SLOW PU PRN ×2 (14:25→20:32)
[2016-05-13] MEDS ORDERED: amLODIPine TAB* 5 MG PO SCH (21:00)
[2016-05-13] MEDS ORDERED: amLODIPine TAB* 5 MG PO ONE (21:25)
[2016-05-13] MEDS ORDERED: D5W 1/2 NS KCl 20 Meq 1000 ML* 1,000 ML IV SCH (22:00)
[2016-05-14] MEDS: HYDROmorphone INJ* 1 MG/ML CARPUJECT SYRINGE IV SLOW PU PRN ×2 (03:03→16:07)
[2016-05-14] MEDS: Ampicillin IV* 2 GM in NS 0.9% 100 ML* 100 ML IVPB SCH ×4 (03:12→20:49)
[2016-05-14] MEDS: Acetaminophen ADULT LIQ* 650 MG/20.3 ML UDC PO PRN ×2 (08:31→13:22)
[2016-05-14] MEDS: CIPROFLOXACIN 0.3% SCH ×2 (08:36→20:20)
[2016-05-14] MEDS: levETIRAcetam IV* 750 MG in NS 0.9% 100 ML* 100 ML IVPB SCH ×2 (08:39→20:20)
--- NOTE | 2016-05-14 09:50 | PN ---
Progress Note - Progress Note SOAP: Subjective: [This is a 51 year old female who is recovering from a fall while ice skating, sustaining cerebral contusion and skull fracture on 05/11/16. She continues to complain of headache and decreased hearing in left ear. ] Objective: [ Vital Signs: Temp Pulse Resp BP Pulse Ox 98.7 F 78 16 140/65 92 05/14/16 03:05 05/14/16 03:05 05/14/16 04:03 05/14/16 03:05 05/14/16 03:19 General: Laying on right side in bed, no distress. Responds appropriately to questions. Neuro: Motor and sensory intact. Left hearing decreased. ] Assessment: [This patient is stable and recovering from cerebral contusion and left temporal fracture. ] Plan: [1. Continue pain management.]
--- NOTE | 2016-05-14 10:08 | PN ---
Subjective Date of Service: 05/14/16 Interval History: C/O nausea, frontal headache. Objective Active Medications: Acetaminophen (Tylenol Adult Liq*) 650 mg PO Q4H PRN PRN Reason: PAIN Last Admin: 05/14/16 08:31 Dose: 650 mg Ciprofloxacin HCl (Cipro 0.3% Opth*) 4 drop .SEE ORDER BID [facility] Last Admin: 05/14/16 08:36 Dose: 4 drop Hydromorphone HCl (Dilaudid Iv*) 1 mg IV SLOW PU Q4H PRN PRN Reason: PAIN Last Admin: 05/14/16 03:03 Dose: 1 mg Levetiracetam 750 mg/ Sodium (Chloride) 107.5 mls @ 460 mls/hr IVPB Q12H [facility] Last Admin: 05/14/16 08:39 Dose: 460 mls/hr Ampicillin Sodium 2 gm/ Sodium (Chloride) 100 mls @ 200 mls/hr IVPB 0400,1000, 1600,2200 [facility] Last Admin: 05/14/16 09:26 Dose: 200 mls/hr Potassium Chloride/Dextrose (D5w 1/2 Ns Kcl 20 Meq 1000 Ml*) 1,000 mls @ 75 mls /hr IV PER RATE [facility] Last Admin: 05/14/16 03:01 Dose: 75 mls/hr Ondansetron HCl (Zofran Inj*) 4 mg IV Q4H PRN PRN Reason: NAUSEA/VOMITING Last Admin: 05/13/16 20:31 Dose: 4 mg Trimethobenzamide HCl (Tigan Cap*) 300 mg PO QID [facility] Vital Signs 05/13/16 05/13/16 05/13/16 10:55 14:25 15:25 Temperature 97.9 F Pulse Rate 67 Respiratory 14 20 14 Rate Blood Pressure 137/65 (mmHg) O2 Sat by Pulse 95 Oximetry 05/13/16 05/13/16 05/13/16 16:13 19:40 20:00 Temperature 98.2 F 97.9 F Pulse Rate 63 71 Respiratory 18 16 18 Rate Blood Pressure 148/68 148/62 (mmHg) O2 Sat by Pulse 86 98 Oximetry 05/13/16 05/13/16 05/13/16 20:21 20:32 21:17 Temperature Pulse Rate Respiratory 18 Rate Blood Pressure 150/92 140/76 (mmHg) O2 Sat by Pulse Oximetry 05/13/16 05/14/16 05/14/16 21:32 00:00 00:30 Temperature 98.6 F Pulse Rate 80 Respiratory 16 16 16 Rate Blood Pressure 138/68 (mmHg) O2 Sat by Pulse 90 Oximetry 05/14/16 05/14/16 05/14/16 01:06 03:03 03:05 Temperature 98.7 F Pulse Rate 78 Respiratory 16 16 16 Rate Blood Pressure 140/65 (mmHg) O2 Sat by Pulse 89 Oximetry 05/14/16 05/14/16 05/14/16 03:19 04:00 04:03 Temperature Pulse Rate Respiratory 16 16 Rate Blood Pressure (mmHg) O2 Sat by Pulse 92 Oximetry Oxygen Devices in Use Now: None Appearance: Lying on R side, eyes closed, washcloth on forehead. Does not open her eyes to talk to me, says almost nothing. Neurological: Alert and Oriented x 3, NL Sensation Result Diagrams: 05/12/16 05:47 05/13/16 05:27 Additional Lab and Data: Lab Results 05/11/16 05/11/16 05/11/16 Range/Units 20:05 20:05 20:05 WBC 19.3 H (3.5-10.8) 10^3/ul RBC 4.08 (4.0-5.4) 10^6/ul Hgb 12.0 (12.0-16.0) g/dl Hct 37 (35-47) % MCV 90 (80-97) fL MCH 30 (27-31) pg MCHC 33 (31-36) g/dl RDW 13 (10.5-15) % Plt Count 364 (150-450) 10^3/ul MPV 8 (7.4-10.4) um3 Neut % (Auto) 86.5 H (38-83) % Lymph % (Auto) 8.3 L (25-47) % [place] % (Auto) 4.2 (1-9) % Eos % (Auto) 0.6 (0-6) % Baso % (Auto) 0.4 (0-2) % Absolute Neuts (auto) 16.7 H (1.5-7.7) 10^3/ul Absolute Lymphs (auto) 1.6 (1.0-4.8) 10^3/ul Absolute Monos (auto) 0.8 (0-0.8) 10^3/ul Absolute Eos (auto) 0.1 (0-0.6) 10^3/ul Absolute Basos (auto) 0.1 (0-0.2) 10^3/ul Absolute Nucleated RBC 0 10^3/ul Nucleated RBC % 0 INR (Anticoag Therapy) 0.94 (0.89-1.11) Sodium 136 (133-145) mmol/L Potassium 3.6 (3.5-5.0) mmol/L Chloride 107 (101-111) mmol/L Carbon Dioxide 25 (22-32) mmol/L Anion Gap 4 (2-11) mmol/L BUN 20 (6-24) mg/dL Creatinine 0.57 (0.51-0.95) mg/dL Est GFR ( Amer) 144.4 (>60) Est GFR (Non-Af Amer) 112.3 (>60) BUN/Creatinine Ratio 35.1 H (8-20) Glucose 98 (70-100) mg/dL Calcium 7.9 L (8.6-10.3) mg/dL Total Bilirubin 0.30 (0.2-1.0) mg/dL AST 14 (13-39) U/L ALT 11 (7-52) U/L Alkaline Phosphatase 44 (34-104) U/L Total Protein 6.4 (6.4-8.9) g/dL Albumin 3.7 (3.2-5.2) g/dL Globulin 2.7 (2-4) g/dL Albumin/Globulin Ratio 1.4 (1-3) Microbiology and Other Data: Microbiology 05/11/16 23:57 Nasal Screen MRSA (PCR)([facility]) - Final Nasal Mrsa Negative Assess/Plan/Problems-Billing Assessment: - Patient Problems (1) ICH (intracerebral hemorrhage) Current Visit: Yes Status: Acute Code(s): I61.9 - NONTRAUMATIC INTRACEREBRAL HEMORRHAGE, UNSPECIFIED SNOMED Code(s): 356987452 Comment: Due to trauma, fell backwards on ice. Probable temporal bone fx. Continue levetiracetam, IV ampicillin. SCD's in place. Pt encouraged to get OOB, ambulate if tolerated. Start scheduled trimethobenzamide for persistent nausea. Continue IV fluids. CBC< BMP 05/15. I will ask Dr. Liu for advice on symptom control.
[2016-05-14] MEDS: Trimethobenzamide CAP* 300 MG PO SCH ×4 (11:08→20:20)
[2016-05-14] MEDS: Verapamil SR TAB* 240 MG PO SCH (11:08)
--- NOTE | 2016-05-14 12:48 | RAD ---
Indication: Severe headache when sitting up. Head injury. Follow-up subdural hematoma. Comparison: May 12, 2016 CT. May 11, 2016 CT. Technique: Noncontrast CT vertex of skull through foramen magnum. Report: 2.5 cm AP by 1.7 cm transverse moderately well-circumscribed hypodense region at the RIGHT frontal lobe cortex and subcortical white matter inferiorly adjacent to the floor of the cranial fossa with minimal foci of hyperdense intra-axial or subarachnoid hemorrhage is unchanged. Associated adjacent small subdural extra-axial hematoma present at the RIGHT frontal and temporal regions measuring up to 2 mm in thickness without change. Small mildly hyperdense extra-axial hematoma at the junction of the inferior LEFT parietal and occipital lobes measuring up to 1.4 cm in length by 0.3 cm in thickness is mildly decreased in density compared with the previous exam without significant change in volume. No new intra or extra-axial hematoma or liz matter white matter obscuration evident. Negative for gross sulcal effacement. Unremarkable ventricles and basal cisterns. Negative for midline shift. Unremarkable calvarium and skull base. Unremarkable scalp. Clear visualized paranasal sinuses. No significant change in partial opacification of the LEFT mastoid air spaces. Negative for scalp hematoma. IMPRESSION: 1. 2.5 cm AP by 1.7 cm transverse moderately well-circumscribed hypodense region at the RIGHT frontal lobe cortex and subcortical white matter inferiorly adjacent to the floor of the cranial fossa with minimal foci of hyperdense intra-axial or subarachnoid hemorrhage is unchanged. Associated adjacent small subdural extra-axial hematoma present at the RIGHT frontal and temporal regions measuring up to 2 mm in thickness without change. 2. Small mildly hyperdense extra-axial hematoma at the junction of the inferior LEFT parietal and occipital lobes measuring up to 1.4 cm in length by 0.3 cm in thickness is mildly decreased in density compared with the previous exam without significant change in volume. 3. Negative for significant mass effect. 4. No new intra or extra-axial hematoma or liz matter white matter obscuration evident.
[2016-05-14] MEDS ORDERED: methylPREDNISolone SOD 40 MG* 1 ML VIAL IV PRN (16:25)
[2016-05-14] MEDS ORDERED: methylPREDNISolone 125 MG* 2 ML VIAL IV ONE (16:30)
--- NOTE | 2016-05-14 23:51 | CONS ---
NEUROLOGY CONSULTATION: DATE OF CONSULTATION/DICTATION: 05/14/16 PATIENT OF: Dr. Oumar Weldon and Dr. Morillo. HISTORY: I am asked to evaluate for this 51-year-old woman for severe headache and vomiting following head trauma. She was ice skating with her family on [address] and stopped to take a picture and she fell backwards striking the back of her head with brief loss of consciousness and then some confusion with bleeding from her left ear. She was admitted to the emergency room and had a workup with a small right frontal subarachnoid hemorrhage and subdural hemorrhage and left mastoid base of the skull fractures. She had a right frontal contrecoup injury as well Neurosurgery had seen her. She had no acute fracture of her C-spine. Since being admitted, she has had severe bifrontal pressure headache but associated with nausea and persistent vomiting and with anorexia, lightheadedness, and significant photophobia. She also feels dizzy. She has been started on Keppra and has been young but it is unclear whether it is medication effect or that she feels miserable. She has not been eating other than a few sips and has had some persistent vomiting. SOCIAL HISTORY: She lives with her and daughter. She does not smoke or use drugs. She drinks one glass of wine a day. 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 She is in good general health. MEDICATIONS: No medicines. ALLERGIES: No drug allergies. FAMILY HISTORY: Noncontributory and reviewed. REVIEW OF SYSTEMS: Negative in all 14 spheres other than in the HPI. PHYSICAL EXAM: On exam, temperature 98.2, pulse 71, respirations 20, blood pressure 139/67. She was alert and oriented with normal speech and comprehension. Cranial nerves II through XII were intact. I do not visualize her fundi well because of her photophobia. Motor exam, she moves all extremities with 5/5 power and she had normal gait. Reflexes were 2 and equal, downgoing toes. Chest clear. Cardiovascular, regular rate and rhythm. Abdomen soft with positive bowel sounds. DIAGNOSTIC STUDIES/LAB DATA: We repeated her CT scan because she had only 2 CT scans within the night she came in and then in the next morning. She has a hypodense area in her right frontal cortex and subcortical white matter as well as some hyperdense either subarachnoid or intraaxial small hemorrhage with a small subdural and she has a slightly smaller extraaxial hematoma in her left parietal area. Labs include normal CBC, INR, chemistry other than a calcium 7.6. IMPRESSION: Christina has had intracranial contusion and bleeding as described as above. She also has a post concussion syndrome characterized by severe headache , dizziness, photophobia, and persistent vomiting. She is incapacitated now and recommended the verapamil that I discussed with Dr. Morillo earlier. I would recommend a short course of steroids, which may help both the headache and the nausea, although might make her mood worse. I discussed with them that moodiness may be in part from the Keppra as well. Dr. Cade has recommended a short course of that and so that will be coming off in the near future. The mood is not apparently incapacitating. I discussed with her and her that other things such as Periactin may be useful both for the headache and her anorexia. I discussed that most likely her symptoms will begin to improve on their own, but she may have a long course of post concussion syndrome given her severity of her symptoms at this point and her CT scan findings. Thank you for sharing her case. [id number]/[facility] #: [id number] TERESE
[2016-05-15] MEDS: HYDROmorphone INJ* 1 MG/ML CARPUJECT SYRINGE IV SLOW PU PRN ×2 (02:15→08:17)
[2016-05-15] MEDS: Ampicillin IV* 2 GM in NS 0.9% 100 ML* 100 ML IVPB SCH ×2 (04:07→10:12)
[2016-05-15 05:38] LABS: Hematocrit 37 % (35-47); Hemoglobin 12.4 g/dl (12.0-16.0); Mean Corpuscular HGB Conc 34 g/dl (31-36); Mean Corpuscular Hemoglobin 30 pg (27-31); Mean Corpuscular Volume 88 fL (80-97); Mean Platelet Volume 7 um3 (7.4-10.4); Red Blood Count 4.17 10^6/ul (4.0-5.4); Red Cell Distribution Width 13 % (10.5-15); White Blood Count 5.1 10^3/ul (3.5-10.8)
[2016-05-15 05:47] LABS: BUN/Creatinine Ratio 14.9 (8-20); Calcium 8.3 mg/dL (8.6-10.3); EGFR African American 180.4 (>60); EGFR Non-African American 140.3 (>60); Potassium 3.8 mmol/L (3.5-5.0)
--- NOTE | 2016-05-15 07:36 | PN ---
Progress Note - Progress Note SOAP: Subjective: []Feels better this am Complains of less headache Still taking minimal fluids by mouth Objective: []Easily arousable Neuro intact Assessment: []Improving Plan: []Might consider d/c on medrol dosepack if she improves her PO intake and ambulates Will be happy to follow her as an outpatient
[2016-05-15] MEDS ORDERED: methylPREDNISolone 125 MG* 2 ML VIAL IV PRN (08:00)
[2016-05-15] MEDS: CIPROFLOXACIN 0.3% SCH (08:24)
[2016-05-15] MEDS: Verapamil SR TAB* 240 MG PO SCH (08:24)
[2016-05-15] MEDS: Trimethobenzamide CAP* 300 MG PO SCH (08:24)
[2016-05-15] MEDS: levETIRAcetam IV* 750 MG in NS 0.9% 100 ML* 100 ML IVPB SCH (08:32)
[2016-05-15] MEDS ORDERED: predniSONE TAB* 20 MG PO SCH (09:00)
[2016-05-15 09:01] VITALS: BP 135/62
[2016-05-15] MEDS ORDERED: oxyCODONE/Acetamin 5/325 MG* TAB PO PRN (10:18)
--- NOTE | 2016-05-16 03:55 | DS ---
DISCHARGE SUMMARY: DATE OF ADMISSION: 05/11/16 DATE OF DISCHARGE: 05/15/16 PRIMARY CARE PHYSICIAN: Gwen Trejo MD DISCHARGE DIAGNOSES: 1. Intracerebral contusion, status post fall. 2. Left temporal bone fracture. 3. Subdural hematoma. 4. Intracranial hemorrhage. 5. Subsequent postconcussion syndrome with headache and nausea. MEDICATIONS AT DISCHARGE: Include: 1. Ciprofloxacin 4 drops to left ear canal twice a day for another 3 days. 2. Zofran ODT 4 mg every 6 hours p.r.n. nausea. 3. Tigan 300 mg up to 4 times a day p.r.n. nausea. 4. Verapamil SR 240 mg daily. 5. Keppra 500 mg b.i.d. for another 2 days. 6. Oxycodone 5 mg every 4 hours p.r.n. The patient was prescribed a total of 30 tablets. I-STOP was checked. The patient has not had any controlled substances prescribed before according to I-STOP. 7. Prednisone 50 mg daily for a total of 4 days. LABORATORY DATA AND STUDIES PERFORMED DURING THE HOSPITAL STAY: Included: On 05/15/16: White blood cell count of 5.1, hemoglobin 12.4, hematocrit 37, and platelets 373. Sodium 137, potassium of 3.8, chloride 105, carbon dioxide 26, BUN 7, and creatinine 0.47. IMAGING STUDIES: The most recent brain CT obtained on 05/14/16. Impression: "A 2.5 cm AP x 1.7 cm transverse moderately well-circumscribed hypodense lesion at the right frontal lobe cortex and subcortical white matter inferiorly adjacent to the floor of the cranial fossa with minimal foci of hyperdense intraaxial or subarachnoid hemorrhage is unchanged. Associated adjacent small subdural extraaxial hematoma present at the right frontal and temporal regions, measuring up to 2 mm in thickness without change. Small mildly hyperdense extraaxial hematoma at the junction of the inferior left parietal and occipital lobes, measuring up to 1.4 cm in length and 0.3 cm in thickness is mildly decreased in density compared with the previous exam without significant change in volume. Negative for significant mass effects. No new intraaxial or extraaxial hematoma, ugly white matter obscuration evident." Cervical spine CT obtained on 05/11/16. Impression: "Degenerative changes of the cervical spine with unspecific straightening of the normal cervical lordosis without identification of acute fracture or traumatic dislocation." CONSULTATIONS DURING THE HOSPITAL STAY: Included: 1. Dr. Cardona from Ear, Nose, and Throat specialist. 2. Dr. Liu, Neurology. 3. Dr. Campos, Neurosurgery. HOSPITALIZATION COURSE: Christina Vitale is a 51-year-old female who fell, hit her head, and lost consciousness while skating. She was admitted to the hospital on 05/11/16 following the fall with intracerebral hemorrhage as noted above. The patient also was noted to have blood in the left ear canal. Initially, she was treated with systemic antibiotics, but later on she was evaluated by Dr. Cardona and was noted not to be needing systemic antibiotics and diagnosed with left temporal bone fracture. At that point, the patient was recommended ciprofloxacin drops to the left ear canal for 7 days total. The patient's hospitalization course was complicated by postconcussion syndrome , severe nausea, and headache. She was seen by Dr. Liu in Neurology consultation who recommended verapamil as well as prednisone for headache prevention as well as Keppra for a total of 7 days after the fall. The patient also was seen by Dr. Campos from Neurosurgery who recommended followup CTs with most recent obtained a day prior to discharge that was unchanged and slightly better. No further recommendations were at that point necessary and the patient is to follow up with Dr. Campos as needed. By the time of discharge, the patient still complaints of slight headache, but she feels much better and she wishes to go home. She had been neurologically intact and ambulating, although she still has nausea and headache. She is going to be discharged to follow up with the primary care provider, Dr. Trejo , on 05/20/16. PHYSICAL EXAMINATION AT THE TIME OF DISCHARGE: Vital signs: Blood pressure 135 /62, heart rate of 72 and regular, respiratory rate 16, oxygen saturation 93% on room air, and temperature is 98.4. General: This is a very pleasant 51-year -old female who is in no acute distress. Awake, alert, and oriented x3. HEENT : Head atraumatic and normocephalic. Eyes, pupils are equal and reactive to light and accommodation. Oropharynx clear. Mucosa moist. Neck: Supple. No JVD. No bruits bilaterally. Cardiovascular: Regular rate and rhythm. No murmur. Respiratory: Clear to auscultation bilaterally. Abdomen: Soft, nontender. Bowel sounds are present in all 4 quadrants. Extremities: There is no edema. Pulses +2 bilaterally. No clubbing or cyanosis. Neuro Evaluation : Speech clear. Cranial nerves II through XII grossly intact. Motor strength is 5/5 bilaterally. Please note that this is a short summary of the patient's hospital stay. Please refer to further medical records for details. TIME SPENT: Approximately 40 minutes was spent on the patient's discharge. CC: Dr. Trejo; Dr. Liu; Dr. Cardona; Dr. Campos* [id number]/[facility] #: [id number] [facility]
== END 2016-05-15 12:45 | disposition home or self-care (01) | DRG 55 ==
LOC: ED 18:42 → ICU 21:10 → MEDTELE 05-12 19:34
PROVIDERS: ADMIT Pediatrics; ATTEND Internal Medicine
DX: S06.5X1A Traumatic subdural hemorrhage with loss of consciousness of 30 minutes or less, initial encounter (principal); F07.81 Postconcussional syndrome; W00.0XXA Fall on same level due to ice and snow, initial encounter; S02.19XA Other fracture of base of skull, initial encounter for closed fracture; G44.309 Post-traumatic headache, unspecified, not intractable; Y93.21 Activity, ice skating; Y92.330 Ice skating rink (indoor) (outdoor) as the place of occurrence of the external cause
CPT/HCPCS: 36415; 70450; 72125; 80048; 80053; 84702; 85025; 85610; 87086; 87641; 99283; A9270-GY; J0290; J1170; J2405; J2543; J2930; J3010; J7512